=== PATIENT | female | born 1970 | race Caucasian/White ===

== ENCOUNTER → 2023-09-25 07:01 | Outpatient (REF) | payer OTHER, SELFPAY | LOC: RAD 07:01 | PROVIDERS: ATTENDING PHYSICIAN Surgery Vascular Surgery; FAMILY PHYSICIAN Family Medicine | DX: I72.3 Aneurysm of iliac artery (principal) | CPT/HCPCS: 93922; 93925; 93978 ==

== ENCOUNTER → 2024-02-23 06:45 | Outpatient (REF) | payer OTHER, SELFPAY | LOC: WDC 06:45 | PROVIDERS: ATTENDING PHYSICIAN Obstetrics & Gynecology | DX: Z12.31 Encounter for screening mammogram for malignant neoplasm of breast (principal) | CPT/HCPCS: 77063; 77067 ==

== ENCOUNTER → 2024-05-03 08:57 | Outpatient (REF) | payer OTHER, SELFPAY | LOC: HWRAD 08:57 | PROVIDERS: ATTENDING PHYSICIAN Family Medicine | DX: R31.9 Hematuria, unspecified (principal) | CPT/HCPCS: 76770 ==

== ENCOUNTER → 2024-10-03 08:05 | Outpatient (REF) | payer OTHER, SELFPAY | LOC: DHVS 08:05 | PROVIDERS: ATTENDING PHYSICIAN Surgery Vascular Surgery; FAMILY PHYSICIAN Family Medicine | DX: I72.3 Aneurysm of iliac artery (principal) | CPT/HCPCS: 93922; 93978 ==

== ENCOUNTER → 2025-01-03 08:13 | Outpatient (REF) | payer SELFPAY | LOC: HWRAD 08:13 | PROVIDERS: ATTENDING PHYSICIAN Internal Medicine Interventional Cardiology; FAMILY PHYSICIAN Family Medicine | DX: E78.2 Mixed hyperlipidemia (principal); I48.91 Unspecified atrial fibrillation | CPT/HCPCS: 75571 ==